=== PATIENT | male | born 1990 | race Caucasian/White ===

== ENCOUNTER 2016-12-09 02:27 | Emergency (ER) | payer BC, OTHER ==
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
[2016-12-09] MEDS ORDERED: Adacel Vial IM ONE ×2 (02:40→02:59)
[2016-12-09 04:35] VITALS: BP 130/57; PULSE 72; O2SAT 96
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
== END 2016-12-09 04:51 | disposition home or self-care (01) ==
LOC: ED 02:27
DX: S00.83XA Contusion of other part of head, initial encounter (principal); S01.21XA Laceration without foreign body of nose, initial encounter; W22.8XXA Striking against or struck by other objects, initial encounter
CPT/HCPCS: 70486; 90471; 90715; 99283; 99284

== ENCOUNTER 2017-06-24 03:46 | Emergency (ER) | payer BC, OTHER ==
[2017-06-24 04:13] VITALS: BP 160/87; PULSE 91; O2SAT 98
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
[2017-06-24] MEDS ORDERED: TORAdol 30 mg Injection IM ONE (05:06)
[2017-06-24] MEDS ORDERED: TORAdol 30 mg Injection ONE (05:20)
--- NOTE | 2017-06-24 09:14 | XRAY ---
Indication: Pain following fall. Comparison: None 3 views of the right elbow obtained. No bony, articular, or soft tissue abnormalities.
--- NOTE | 2017-06-24 09:23 | XRAY ---
Indication: Pain and swelling following fall. Comparison: None 3 views of the right knee demonstrates minimal medial joint space narrowing and small well-circumscribed ossification anterior to the tibial plateau either developmental versus old injury. No other bony, articular, or soft tissue abnormalities.
== END 2017-06-24 06:00 | disposition home or self-care (01) ==
LOC: ED 03:46
DX: S50.01XA Contusion of right elbow, initial encounter (principal); S80.01XA Contusion of right knee, initial encounter; W01.0XXA Fall on same level from slipping, tripping and stumbling without subsequent striking against object, initial encounter; Y92.239 Unspecified place in hospital as the place of occurrence of the external cause; Y99.0 Civilian activity done for income or pay
CPT/HCPCS: 73080; 73562; 80307; 96372; 99282; 99283; 99284; J1885

== ENCOUNTER 2023-01-23 14:50 | Emergency (ER) | payer BC ==
[2023-01-23 15:35] VITALS: TEMP 97.6
[2023-01-23] MEDS ORDERED: Hydromorphone 1 mg/ml Injection IV ONE (15:41)
[2023-01-23] MEDS ORDERED: Sodium Chloride 0.9% 1000 ML 1,000 ML IV STA (15:41)
[2023-01-23] MEDS ORDERED: Zofran 4 MG/2 ML VIAL IV ONE (15:41)
[2023-01-23] MEDS ORDERED: TORAdol 30 mg Injection IV ONE (15:41)
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
[2023-01-23] MEDS ORDERED: Sodium Chloride 0.9% 1000 ML 1,000 ML ONE (15:57)
[2023-01-23] MEDS ORDERED: Zofran 4 MG/2 ML VIAL ONE (15:57)
[2023-01-23] MEDS ORDERED: Hydromorphone 1 mg/ml Injection ONE (15:57)
[2023-01-23] MEDS ORDERED: TORAdol 30 mg Injection ONE (15:57)
[2023-01-23 15:58] LABS: Absolute Neutrophil Ct (ANC) 6.43 x10^3/uL (1.4-6.9); BASOPHIL % 0.3 % (0.0-0.4); Basophil (Absolute #) 0.03 x10^3/uL (0-0.4); Eosinophil % 0.9 % (0.00-5.0); Eosinophil (Absolute #) 0.08 x10^3/uL (0-0.5); Hemoglobin 12.5 g/dL (12.5-18.0); IMMATURE GRAN # 0.02 x10^3u/L (0.00-0.03); IMMATURE GRAN % 0.2 % (0.00-0.4); Lymphocyte (Absolute #) 1.73 x10^3/uL (1.0-4.6); Lymphocytes % 19.5 % (24.0-44.0); Mean Cell Volume 94.3 fL (78-100); Mean Corpuscular Hgb Concent. 32.9 g/dL (32-36); Mean Platelet Volume 9.6 fL (7.5-11.0); Monocyte (Absolute #) 0.57 x10^3/uL (0.0-1.3); Monocytes % 6.4 % (0.0-12.0); Neutrophil % 72.7 % (36.0-66.0); Platelet Count 244 x10^3/uL (150-450); Red Blood Count 4.03 x10^6/uL (4.1-5.6); Red Cell Distribution Width 12.6 % (11.5-14.0); White Blood Count 8.9 x10^3/uL (4.0-10.5)
[2023-01-23 16:14] LABS: ANION GAP 11.6 MEQ/L (5-15); BILIRUBIN,TOTAL 0.6 mg/dL (0.2-1.3); Calcium 8.8 mg/dL (8.4-10.2); Creatinine 1 1.72 mg/dL (0.66-1.25); EST GLOMERULAR FILTRATION RATE 53.2 ML/MIN; Potassium 4.3 mmol/L (3.5-5.1); Total Protein 7.6 g/dL (6.3-8.2)
--- NOTE | 2023-01-23 16:52 | XRAY ---
Indication: Right flank pain. Multiple contiguous axial images obtained through the abdomen and pelvis without contrast using renal stone protocol. Comparison: None Lung bases clear. Heart not enlarged. Mid right ureter demonstrates 3-4 mm calculus, approximately L4 level. Mild right-sided hydronephrosis favors partial obstructive uropathy. Additional bilateral renal medical calculi, largest on left measuring 8mm. Noncontrasted stomach and bowel loops appear nonobstructed with normal appendix. Diffuse fatty liver. No free fluid/air. Remaining liver, gallbladder, pancreas, spleen, adrenal glands, kidneys, ureters, bladder, and aorta are unremarkable for noncontrast exam. Osseous structures intact with minimal degenerative changes throughout lumbar spine and minimal dextroscoliosis centered at L2. Impression: 1. 3-4 mm right mid ureter calculus producing partial obstruction. Additional bilateral renal micro-calculi. 2. Incidental fatty liver and chronic bony findings.
[2023-01-23] MEDS ORDERED: Flomax 0.4 MG PO ONE (16:59)
[2023-01-23 17:04] VITALS: O2SAT 96
[2023-01-23] MEDS ORDERED: Flomax 0.4 MG ONE ×2 (17:07→17:18)
[2023-01-23 17:51] VITALS: BP 138/78; PULSE 51; RESP 18
[2023-01-23 18:29] LABS: Appearance Clear (Clear); Bacteria None Seen /HPF (None Seen); Bilirubin Negative (Negative); Blood Negative (Negative); Epithelial Cells None Seen /HPF (None Seen); Glucose, Urine Negative (Negative); Hyaline Casts NONE SEEN /LPF (0-2); Ketones Negative (Negative); Leukocyte Esterase Negative (Negative); Nitrite Negative (Negative); Ph 5.5 (4.6-8.0); Protein,Urine Dip Negative (Negative); RBC 0-2 /HPF (0-5); Specific Gravity 1.015 (1.005-1.030); Urobilinogen 0.2 mg/dL (0.2)
[2023-01-23 18:33] LABS: ADD URINE CULTURE? NO (NO)
== END 2023-01-23 19:21 | disposition home or self-care (01) ==
LOC: ED 14:50
DX: N13.2 Hydronephrosis with renal and ureteral calculous obstruction (principal); R10.9 Unspecified abdominal pain; R11.2 Nausea with vomiting, unspecified; Z28.310 Unvaccinated for COVID-19; Z79.891 Long term (current) use of opiate analgesic
CPT/HCPCS: 36000; 36415; 74176; 80053; 81001; 82150; 83690; 85025; 96374; 96375; 99284; J1170; J1885; J2405; A9270-GY